=== PATIENT | female | born 2000 | race Caucasian/White ===

== ENCOUNTER 2024-01-23 13:32 | Inpatient (IN) ==
[2024-01-23] MEDS: LACTATED RINGER'S 1,000 ML IV ONE (14:15)
--- NOTE | 2024-01-23 14:44 | OB/GYN Consultation ---
Date of Consultation January 23, 2024 Assessment & Plan (1) 37 weeks gestation of : (2) Vaginal bleeding: (3) No care in current : Plan 23 yo G1 at approximately 37 weeks gestation presents w/ vag bleeding and abd/back pain in in the setting of newly dx . US approx 37 wks and fundal height is consistent with this VSS Fetus cat 2, intermittent decels, ?variables noted Pain - ?early labor, neg for rom but is 2cm. Will plan to recheck in 2hrs. Discussed status has good variability but does have intermittent decels. If does persist, would need to talk about more urgent delivery for status GBS pending with all pnl, uds History of Present Illness Reason for Consultation: Requesting Physician: Dr. Cooper Attending Physician: Phylicia Houston MD History of Present Illness 23 yo G1 presented to ED due to +HPT and vaginal bleeding. Believed her period to be about 4 wks ago, notes she has been having her normal monthly period x 5-7 without any abnormal, skipped, or missed periods. Yesterday and today was having light bleeding but was different than her normal period so took a test and it was positive. She also noted back pain coming and going q15 min, minimal pain in abdomen. has not noted any abnormal abdominal pain over the last year, no b/b issues, n/v. 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 US in ED demonstrated SVIUP w/ FHR 141bpm, measuring 37 wks with TAVON 02/13/24, JOSE RAFAEL 7.5, DVP 2.3. 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 Is occasional/social alc drinker, 2x/mo. Denies marijuana use Allergies Allergy/AdvReac Type Severity Reaction Status Date / Time amoxicillin Allergy Unknown Hives Verified 01/23/24 14:05 Home Medications Medication Instructions Recorded Confirmed Type No Known Home Medications 01/23/24 01/23/24 History Patient History Medical History (Updated 01/23/24 @ 15:42 by Phylicia Houston MD) No known health problems Surgical History (Updated 01/23/24 @ 14:51 by Phylicia Houston MD) S/P tonsillectomy Family History (Updated 01/23/24 @ 15:29 by Roma Meneses RN) Father Myocardial infarction extensive paternal cardiac history Father age 40 grandmother 57 other family members with stents Grandmother (Paternal) Myocardial infarction Social History Smoking Status: Never smoker Hx Alcohol Use: Yes Hx Substance Use: No Preferred Language: Azeri Director Of Strategic Partnerships Required: No Beliefs That Will Affect Care: None marital status: Single Current Living Situation: Parent Current Living Situation Comment: lives with mom Feels Safe at Home: Yes Assistive Devices: Glasses Physical Exam Genitourinary: OB Exam Monitor Tracing: + external FHT monitor used, + external uterine monitor used (irreg) and + category II (140/mod/+accel/intermit decels) Fundal height 37cm SSE cervix visually dilated approx 2cm, no pooling. Nitrazine equiv as small brown/red blood. Ferning negative SVE 2/80/-2 Results & Data Vital Signs (Past 12 Hours) Vital Signs Temp Pulse Resp BP Pulse Ox 01/23/24 14:30 99 01/23/24 14:30 76 01/23/24 14:25 99 01/23/24 14:25 90 01/23/24 14:21 84 01/23/24 14:21 138/83 01/23/24 14:20 99 01/23/24 14:20 85 01/23/24 14:15 98 01/23/24 14:15 80 01/23/24 14:13 99.3 F 18 01/23/24 14:12 91 01/23/24 14:12 94 H 01/23/24 14:10 99 01/23/24 14:10 82 01/23/24 14:05 99 01/23/24 14:05 82 01/23/24 14:00 77 98 01/23/24 13:49 73 125/68 01/23/24 13:25 18 01/23/24 13:25 99.3 F 18 PG Care Time/CCT Total # of Minutes Spent Total Time Spent with Patient: Total time spent is greater than 50% in coordination of care (as documented) at patient's floor/unit and/or counseling patient: Coding Level of Care Code None Diagnoses 37 weeks gestation of Z3A.37 Vaginal bleeding N93.9 No care in current O09.30
[2024-01-23] MEDS: ACETAMINOPHEN 500 MG TAB PO PRN (16:00)
[2024-01-23] MEDS: LACTATED RINGER'S 1,000 ML IV SCH (16:02)
[2024-01-23 16:03] LABS: Amphetamines+Metham, Urine Neg (Neg); Barbiturates, Urine Neg (Neg); Benzodiazepine, Urine Neg (Neg); Cocaine, Urine Neg (Neg); Fentanyl, Urine Neg (Neg); MDMA (Ecstacy), Urine Neg (Neg); Marijuana, Urine Neg (Neg); Methadone, Urine Neg (Neg); Opiate, Urine Neg (Neg); Phencyclidine, Urine Neg (Neg)
[2024-01-23 16:06] LABS: Rubella IgG Ab Equivocal (Immune); Rubella IgG Qnt 11.7 IU/mL
[2024-01-23 16:13] LABS: HIV 4th Gen(HIV 1,2 AB+p24 Ag Negative (Negative)
[2024-01-23 16:19] LABS: Hep B Surface Ag with confirm Negative (Negative); Treponema pallidum RflxConfirm Negative (Negative)
[2024-01-23 16:24] LABS: Hep C Ab Rflx HepCQuant RNA Negative (Negative)
[2024-01-23 16:28] LABS: Hepatitis B Surface Ab Quant > 500.00 mIU/mL (>or=10mIU/mL Immune); Hepatitis B Surface Antibody Immune
[2024-01-23] MEDS ORDERED: LACTATED RINGER'S 1,000 ML IV PRN (17:40)
[2024-01-23] MEDS ORDERED: LIDOCAINE 1% LOCAL 20 ML VIAL INFIL PRN (17:40)
[2024-01-23] MEDS ORDERED: OXYTOCIN 30 UNITS/NSS 30 UNITS/500 ML BAG IV PRN (17:40)
[2024-01-23] MEDS ORDERED: VANCOMYCIN HCL 2,000 MG in SODIUM CHLORIDE 0.9% 500 ML IV ONE (18:00)
--- NOTE | 2024-01-23 18:21 | Labor Progress Brief Note ---
Date of Service January 23, 2024 Subjective contractions worse Assessment & Plan (1) 37 weeks gestation of : (2) Vaginal bleeding: (3) No care in current : Plan 23 yo G1 at approximately 37 weeks gestation presents w/ vag bleeding and abd/back pain in in the setting of newly dx . US approx 37 wks and fundal height is consistent with this VSS Fetus cat 2, intermittent variables but remains mod variability Labor - appears to be early labor as now 3-4cm so will admit for lab. Labs wnl thus far other than rub equiv. Will start ancef for gbs unknown status GBS P, ancef ordered epidural prn Physical Exam Genitourinary: Manual OB Exam: + cervical dilation (3-4), + cervical ef facement 70% and + station -2 OB Exam Monitor Tracing: + external FHT monitor used, + external uterine monitor used (q3-4) and + category II (140/mod/+accel/intermit decels) Results & Data Vital Signs (Past 12 Hours) Vital Signs Temp Pulse Resp BP Pulse Ox 01/23/24 17:43 98 01/23/24 17:43 89 01/23/24 17:38 99 01/23/24 17:38 93 H 01/23/24 17:36 77 01/23/24 17:36 136/80 01/23/24 17:33 98 01/23/24 17:33 73 01/23/24 17:31 89 L 01/23/24 17:31 83 01/23/24 17:28 100 01/23/24 17:28 79 01/23/24 17:23 98 01/23/24 17:23 66 01/23/24 17:22 93 01/23/24 17:22 82 01/23/24 17:18 92 01/23/24 17:18 85 01/23/24 17:14 93 01/23/24 17:14 82 01/23/24 17:13 97 01/23/24 17:13 87 01/23/24 17:03 96 01/23/24 17:03 89 01/23/24 16:58 97 01/23/24 16:58 82 01/23/24 16:54 81 01/23/24 16:54 161/95 H 01/23/24 16:53 98 01/23/24 16:53 84 01/23/24 16:45 99 01/23/24 16:45 81 01/23/24 16:40 97 01/23/24 16:40 88 01/23/24 16:35 99 01/23/24 16:35 90 01/23/24 16:30 98 01/23/24 16:30 77 01/23/24 16:25 98 01/23/24 16:25 83 01/23/24 16:20 97 01/23/24 16:20 76 01/23/24 16:15 98 01/23/24 16:15 82 01/23/24 16:10 98 01/23/24 16:10 74 01/23/24 16:05 97 01/23/24 16:05 83 01/23/24 16:00 97 01/23/24 16:00 87 01/23/24 15:55 97 01/23/24 15:55 83 01/23/24 15:50 98 01/23/24 15:50 98 H 01/23/24 15:45 98 01/23/24 15:45 89 01/23/24 15:40 99 01/23/24 15:40 75 01/23/24 15:39 78 01/23/24 15:39 138/73 01/23/24 14:30 99 01/23/24 14:30 76 01/23/24 14:25 99 01/23/24 14:25 90 01/23/24 14:21 84 01/23/24 14:21 138/83 01/23/24 14:20 99 01/23/24 14:20 85 01/23/24 14:15 98 01/23/24 14:15 80 01/23/24 14:13 99.3 F 18 01/23/24 14:12 91 01/23/24 14:12 94 H 01/23/24 14:10 99 01/23/24 14:10 82 01/23/24 14:05 99 01/23/24 14:05 82 01/23/24 14:00 77 98 01/23/24 13:49 73 125/68 01/23/24 13:25 18 01/23/24 13:25 99.3 F 18 Coding Level of Care Code None Diagnoses 37 weeks gestation of Z3A.37 Vaginal bleeding N93.9 No care in current O09.30
[2024-01-23] MEDS ORDERED: NALOXONE HCL 0.4 MG/1 ML VIAL/CARP IV PRN ×2 (18:32→20:59)
[2024-01-23] MEDS ORDERED: NALBUPHINE HCL INJ 10 MG/ML AMP IV PRN ×2 (18:32→20:59)
[2024-01-23] MEDS ORDERED: LIDOCAINE 2% MPF LOCAL 5 ML VIAL EPI PRN (18:32)
[2024-01-23] MEDS ORDERED: diphenhydrAMINE 50 MG/ML VIAL IV PRN ×2 (18:32→20:59)
[2024-01-23] MEDS ORDERED: BUPIVACAINE 0.25% PF 30 ML VIAL EPI STA (18:32)
[2024-01-23] MEDS ORDERED: NALOXONE HCL 1 MG in SODIUM CHLORIDE 0.9% 1,000 ML IV PRN ×2 (18:32→20:59)
[2024-01-23] MEDS ORDERED: SODIUM CHLORIDE 0.9% PF INJ 10 ML VIAL EPI STA (18:32)
[2024-01-23] MEDS ORDERED: LIDOCAINE 2%/EPINEPHRINE 1:200,000 20 ML PF EPI STA (18:32)
[2024-01-23] MEDS ORDERED: ROPIVACAINE 0.5% PF 5 MG/ML 20 ML VIAL EPI PRN (18:32)
[2024-01-23] MEDS ORDERED: fentaNYL citrate PF 100 MCG/2 ML VIAL EPI PRN (18:32)
[2024-01-23] MEDS ORDERED: SODIUM CHLORIDE 0.9% PF INJ 10 ML VIAL EPI PRN (18:32)
[2024-01-23] MEDS ORDERED: ePHEDrine sulfate 50 MG/ML AMP IV PRN ×2 (18:32→20:59)
[2024-01-23] MEDS ORDERED: BUPIVACAINE 0.25% PF 30 ML VIAL EPI PRN (18:32)
[2024-01-23] MEDS ORDERED: fentaNYL citrate PF 100 MCG/2 ML VIAL EPI STA (18:32)
[2024-01-23] MEDS ORDERED: fentANYL 2 MCG/ML BUPIVacaine 0.125%-NSS 100ML BAG EPI PRN (18:32)
--- NOTE | 2024-01-23 18:32 | Anesthesiology Consultation ---
Date of Service January 23, 2024 Assessment & Plan Chart Review Chart Review: Acceptable Risk for Labor Epidural Consults Requested none History Height/Weight Height: 5 ft 5 in Weight: 108.862 kg Allergies Allergy/AdvReac Type Severity Reaction Status Date / Time amoxicillin Allergy Unknown Hives Verified 01/23/24 14:05 Medications Home Medications Medication Instructions Recorded Confirmed Last Taken No Known Home Medications 01/23/24 01/23/24 Unknown Active Medications Generic Name Dose Route Start Last Admin Trade Name Freq PRN Reason Stop Dose Admin Acetaminophen 1,000 mg 01/23/24 15:37 01/23/24 16:00 Acetaminophen 500 Mg Tab PO 02/22/24 15:36 1,000 mg Q8H PRN Administration Pain Lactated Ringer's 1,000 mls @ 125 mls/hr 01/23/24 15:45 01/23/24 18:30 Lr IV 02/22/24 15:44 999 mls/hr .Q8H ROMINA Infusion Past Medical History Medical History (Updated 01/23/24 @ 15:42 by Phylicia Houston MD) No known health problems Past Family History Family History (Updated 01/23/24 @ 15:29 by Roma Meneses RN) Father Myocardial infarction extensive paternal cardiac history Father age 40 grandmother 57 other family members with stents Grandmother (Paternal) Myocardial infarction Past Surgical History Surgical History (Updated 01/23/24 @ 14:51 by Phylicia Houston MD) S/P tonsillectomy Social History Smoking Status: Never smoker Hx Alcohol Use: Yes alcohol intake frequency: a few times a month Hx Substance Use: No Physical Exam Vital Signs Last Vital Signs Temp 37.4 C 01/23/24 14:13 Pulse 89 01/23/24 17:43 Resp 18 01/23/24 14:13 BP 136/80 01/23/24 17:36 Pulse Ox 98 01/23/24 17:43 Genitourinary Manual OB Exam: + cervical dilation (3-4), + cervical effacement + 70% and + station + -2 OB Exam Monitor Tracing: + external FHT monitor used, + external uterine monitor used (q3-4) and + category II (140/mod/+accel/intermit decels) Testing Laboratory Results Blood Type O Positive 01/23/24 11:32 Antibody Screen NEGATIVE 01/23/24 11:32
[2024-01-23] MEDS ORDERED: BUPIVACAINE 0.25% PF 30 ML VIAL ONE (18:33)
[2024-01-23] MEDS ORDERED: LIDOCAINE 2%/EPINEPHRINE 1:200,000 20 ML PF ONE ×2 (18:33→20:31)
[2024-01-23] MEDS ORDERED: fentaNYL citrate PF 100 MCG/2 ML VIAL ONE ×2 (18:33→20:31)
[2024-01-23] MEDS ORDERED: SODIUM CHLORIDE 0.9% PF INJ 10 ML VIAL ONE (18:33)
[2024-01-23] MEDS ORDERED: ePHEDrine sulfate 50 MG/ML AMP ONE (18:33)
[2024-01-23] MEDS: ceFAZolin 2000MG 2,000 MG/15 ML SYR IV ONE (18:37)
[2024-01-23] MEDS: fentANYL 2 MCG/ML BUPIVacaine 0.125%-NSS 100ML BAG ONE (18:53)
[2024-01-23] MEDS: TERBUTALINE SULFATE 1 MG/ML VIAL ONE (20:28)
[2024-01-23] MEDS ORDERED: AZITHROMYCIN 500 MG in DEXTROSE 5% 250 ML IV STA (20:36)
[2024-01-23] MEDS ORDERED: ceFAZolin 3000MG 3,000 MG/72.5 ML BAG IV SCH (20:45)
[2024-01-23] MEDS ORDERED: ceFAZolin 330 MG/ML 1 GM VIAL ONE ×3 (20:46→20:47)
[2024-01-23] MEDS ORDERED: OXYTOCIN 10 UNITS/ML VIAL ONE ×3 (20:50→20:51)
[2024-01-23] MEDS ORDERED: MoRPHine SULFATE PF 1 MG/ML 10 ML AMP/VIAL ONE (20:57)
[2024-01-23] MEDS ORDERED: LACTATED RINGER'S 500 ML IV PRN (20:59)
[2024-01-23] MEDS ORDERED: KETOROLAC 30 MG/ML VIAL IV PRN (20:59)
[2024-01-23] MEDS ORDERED: MoRPHine SULFATE PF 1 MG/ML 10 ML AMP/VIAL EPI ONE (20:59)
[2024-01-23] MEDS ORDERED: DC INTRASPINAL MORPHINE SCH (21:00)
[2024-01-23] MEDS ORDERED: SODIUM CHLORIDE 0.9% 1,000 ML IV SCH (21:00)
[2024-01-23] MEDS ORDERED: NO NARCOTICS OR SEDATIVES SCH (21:00)
[2024-01-23] MEDS ORDERED: KETOROLAC 30 MG/ML VIAL ONE (21:28)
[2024-01-23 21:55] LABS: Cord Venous Blood PO2 21 mmHg (14.1-43.3); O2 Saturation Cord Venous Bld < 60.0 % (<68)
[2024-01-23] MEDS ORDERED: VANCOMYCIN HCL 2,000 MG in SODIUM CHLORIDE 0.9% 250 ML IV SCH (22:00)
--- NOTE | 2024-01-23 22:04 | Anesthesiology Progress Note ---
Date of Service January 23, 2024 Anesthesia Post Procedure Vital Signs Vital Signs: Temp Pulse Resp BP Pulse Ox 01/23/24 22:00 97 01/23/24 22:00 129 H 01/23/24 21:55 84 L 01/23/24 21:55 128 H 01/23/24 21:55 90/50 L 01/23/24 21:54 117 H 01/23/24 21:54 82/40 L 01/23/24 21:50 100 01/23/24 21:50 122 H 01/23/24 21:49 91 01/23/24 21:49 126 H 01/23/24 20:35 94 01/23/24 20:35 112 H 01/23/24 20:34 90 01/23/24 20:34 93 H 01/23/24 20:31 82 01/23/24 20:31 145/77 H 01/23/24 20:30 97 01/23/24 20:30 102 H 01/23/24 20:29 91 01/23/24 20:29 77 01/23/24 20:25 100 01/23/24 20:25 97 H 01/23/24 20:23 89 L 01/23/24 20:23 94 H 01/23/24 20:19 98 01/23/24 20:19 63 01/23/24 20:17 89 L 01/23/24 20:17 72 01/23/24 20:14 100 01/23/24 20:14 62 01/23/24 20:09 100 01/23/24 20:09 63 01/23/24 20:04 100 01/23/24 20:04 69 01/23/24 20:01 62 01/23/24 20:01 146/81 H 01/23/24 19:59 87 L 01/23/24 19:59 71 01/23/24 19:53 100 01/23/24 19:53 78 01/23/24 19:53 93 01/23/24 19:53 67 01/23/24 19:48 100 01/23/24 19:48 62 01/23/24 19:43 100 01/23/24 19:43 64 01/23/24 19:41 66 01/23/24 19:41 131/77 01/23/24 19:38 100 01/23/24 19:38 65 01/23/24 19:36 71 01/23/24 19:36 134/83 01/23/24 19:33 98 01/23/24 19:33 70 01/23/24 19:31 62 01/23/24 19:31 108/58 L 01/23/24 19:28 99 01/23/24 19:28 76 01/23/24 19:27 67 01/23/24 19:27 118/58 L 01/23/24 19:23 99 01/23/24 19:23 83 01/23/24 19:22 74 01/23/24 19:22 136/72 01/23/24 19:18 99 01/23/24 19:18 68 01/23/24 19:13 97 01/23/24 19:13 66 01/23/24 19:13 132/77 01/23/24 19:10 71 01/23/24 19:10 123/76 01/23/24 19:08 98 01/23/24 19:08 80 01/23/24 19:08 85 01/23/24 19:08 116/73 01/23/24 19:04 71 01/23/24 19:04 131/82 01/23/24 19:03 97 01/23/24 19:03 71 01/23/24 19:01 71 01/23/24 19:01 132/81 01/23/24 18:59 74 01/23/24 18:59 140/84 01/23/24 18:58 97 01/23/24 18:58 75 01/23/24 18:55 79 01/23/24 18:55 157/96 H 01/23/24 18:53 97 01/23/24 18:53 93 H 01/23/24 18:52 87 01/23/24 18:52 146/92 H 01/23/24 18:50 75 01/23/24 18:50 147/90 H 01/23/24 18:49 94 01/23/24 18:49 76 01/23/24 18:48 92 01/23/24 18:48 77 01/23/24 18:44 93 01/23/24 18:44 78 01/23/24 18:43 95 01/23/24 18:43 75 01/23/24 17:43 98 01/23/24 17:43 89 01/23/24 17:38 99 01/23/24 17:38 93 H 01/23/24 17:36 77 01/23/24 17:36 136/80 01/23/24 17:33 98 01/23/24 17:33 73 01/23/24 17:31 89 L 01/23/24 17:31 83 01/23/24 17:28 100 01/23/24 17:28 79 01/23/24 17:23 98 01/23/24 17:23 66 01/23/24 17:22 93 01/23/24 17:22 82 01/23/24 17:18 92 01/23/24 17:18 85 01/23/24 17:14 93 01/23/24 17:14 82 01/23/24 17:13 97 01/23/24 17:13 87 01/23/24 17:03 96 01/23/24 17:03 89 01/23/24 16:58 97 01/23/24 16:58 82 01/23/24 16:54 81 01/23/24 16:54 161/95 H 01/23/24 16:53 98 01/23/24 16:53 84 01/23/24 16:45 99 01/23/24 16:45 81 01/23/24 16:40 97 01/23/24 16:40 88 01/23/24 16:35 99 01/23/24 16:35 90 01/23/24 16:30 98 01/23/24 16:30 77 01/23/24 16:25 98 01/23/24 16:25 83 01/23/24 16:20 97 01/23/24 16:20 76 01/23/24 16:15 98 01/23/24 16:15 82 01/23/24 16:10 98 01/23/24 16:10 74 01/23/24 16:05 97 01/23/24 16:05 83 01/23/24 16:00 97 01/23/24 16:00 87 01/23/24 15:55 97 01/23/24 15:55 83 01/23/24 15:50 98 01/23/24 15:50 98 H 01/23/24 15:45 98 01/23/24 15:45 89 01/23/24 15:40 99 01/23/24 15:40 75 01/23/24 15:39 78 01/23/24 15:39 138/73 01/23/24 14:30 99 01/23/24 14:30 76 01/23/24 14:25 99 01/23/24 14:25 90 01/23/24 14:21 84 01/23/24 14:21 138/83 01/23/24 14:20 99 01/23/24 14:20 85 01/23/24 14:15 98 01/23/24 14:15 80 01/23/24 14:13 37.4 C 18 01/23/24 14:12 91 01/23/24 14:12 94 H 01/23/24 14:10 99 01/23/24 14:10 82 01/23/24 14:05 99 01/23/24 14:05 82 01/23/24 14:00 77 98 01/23/24 13:49 73 125/68 01/23/24 13:25 18 01/23/24 13:25 37.4 C 18 Pain Intensity Back: Pain Intensity: 10 Notes Mental Status: alert / awake / arousable Patient Amnestic to Procedure: Yes Nausea / Vomiting: adequately controlled Pain: adequately controlled Airway Patency, RR, SpO2: stable & adequate BP & HR: stable & adequate Hydration State: stable & adequate Neuraxial Anesthesia: was administered Anesthetic Complications: no major complications apparent
--- NOTE | 2024-01-23 22:12 | Operative Report ---
Post Operative Report Pre & Post Diagnosis Operation Date: 01/23/24 20:35 Pre-Op Diagnosis: 1.Intrauterine at 37 weeks 2. intolerance to labor 3.No care Post-Op Diagnosis: 1.Intrauterine at 37 weeks 2. intolerance to labor 3.No care I identified the patient and participated in the time-out.: Yes Procedure Operation Date: 01/23/24 20:35 Actual Procedures p Primary Low Transverse Section in - Phylicia Houston MD Surgeon Phylicia Houston MD Clinical Data Management Manager Julita RN Quantitative Blood Loss (QBL) 591 Findings Consistent with Post-Op Diagnosis Normal external appearance of uterus, bilateral fallopian tubes and ovaries. Endometrium was noted to be meconium stained upon entry into cavity with thick p articulate meconium in the cavity. Viable male with APGARs of 1, 4, and 4 were noted. Skin of infant and umbilical cord appeared to be significantly meconium stained as well. Of note, no meconium or clear evidence of rupture of membranes was ever seen on pad while in labor room. 2 vessel cord was seen. Fluids UOP 600cc by urbano catheter Specimens Cord blood, cord gases, placenta Drains Urbano draining clear urine Anesthesia Type Spinal Complications none Disposition Accompanied Patient To Recovery: Yes Disposition: L&D Indications 23 yo G1 at 37 wks presented for evaluation and was found to be and 37 wks today. She was found to be in labor and admitted. During this time, category 2 tracing was noted due to intermittent variable decels however moderate variability was noted throughout. She received an epidural for pain control. Shortly after epidural, variable decels slowly became more frequent and so resuscitation was performed with appropriate response. See notes for details. Another decel was noted so terbutaline was administered and FSE applied however intrauterine resuscitation efforts did not improve tracing so stat section was called. Description of Procedure The patient was taken to the operating room after consents were ensured. The patient was properly identified. Epidural anesthesia had been bolused without difficulty. The patient was placed in a dorsal supine position with left lateral tilt, then prepped and draped in normal sterile fashion. Surgical time out was performed. Antibiotics were given for prophylaxis. Anesthesia was tested to ensure adequate surgical levels. Pfannenstiel skin incision was performed and carried down to the underlying fascia with a knife. The fascia was then nicked in the midline and extended laterally bluntly. Superior portion of the fascia was grasped with Kochers x2 and elevated off the underlying rectus muscles using blunt dissection. Inferior portion of the fascia was then grasped with Santi clamps x2 and also elevated off the underlying muscles with blunt dissection. Midline was identified. The peritoneum was then entered and extended to provide adequate room for delivery of baby. A hand was inserted into the abdomen, uterus was noted to be clear of adhesions. Bladder blade was inserted, bladder flap was created in the usual fashion. A low transverse uterine incision was made in the uterus and extended bluntly in a superior to inferior fashion. Thick meconium was noted at time of entry into cavity. head was grasped and elevated through the hysterotomy in an atraumatic fashion. The baby delivered in CHAKA position, no nuchal cord. Remainder of the body delivered without incident. Nose and mouth were bulb suctioned on the surgical field. The cord was double clamped and cut, baby was immediately handed off to awaiting pediatrics staff. Cord segment and blood were obtained. Placenta was then expressed from the uterus. The uterus was exteriorized. Several passes were made inside the uterus to remove the remaining membranes. Attention was then turned to the hysterotomy, which was then closed with a running locked suture of 0 Vicryl on a CTX needle. There was a slight inferior extension in the middle of the hysterotomy that was repaired using 0 vicryl. An imbricating layer was then performed using 0-Monocryl. There was noted to be good hemostasis. The posterior cul-de-sac was then inspected and cleaned of clot and debris. The hysterotomy was again inspected and noted to be hemostatic. The uterus was returned to the abdomen. The right and left pericolic gutters were cleaned of all clot and debris. The hysterotomy was again noted to be hemostatic. Space of Retzius was noted to be hemostatic. The fascia was then closed with a running suture of 0 Vicryl on a CT1 needle. Subcutaneous tissue was copiously irrigated and noted to be hemostatic. Subcutaneous tissue was re- approximated using 2-0 plain gut. The skin was then closed with a running suture of 3-0 Monocryl in a subcuticular fashion. At termination of the procedure, fundal pressure was applied and a moderate amount of lochia was expressed. Pressure dressing was applied to the patient. She tolerated the procedure well. All sponge, needle, instrument counts were correct x 2. I attest to the content of the Intraoperative Record and any orders documented therein. Any exceptions are noted below. OB Procedure Charges 98333
[2024-01-23 22:26] LABS: Cord Venous Blood pH < 7.00 (7.20-7.44)
[2024-01-23 22:27] LABS: Cord Venous Blood PCO2 > 125 mmHg (30.4-57.2)
--- NOTE | 2024-01-23 22:35 | Labor Progress Brief Note ---
Date of Service January 23, 2024 Subjective Delayed entry due to pt care. Called to bedside due to deceleration Assessment & Plan (1) 37 weeks gestation of : (2) Vaginal bleeding: (3) No care in current : Plan 23 yo G1 at approximately 37 weeks gestation presents w/ vag bleeding and abd/back pain in in the setting of newly dx . US approx 37 wks and fundal height is consistent with this Was informed by nursing that after receiving epidural, had some deeper variables that resolved with repositioning oxygen into the 130s with moderate variability. I was informed of this afterward and so planned to allow fetus to recover further and then reassess progress. SVE was then performed by nursing due to another decel and found to have progressed to 5/75/-1 by nursing with recovery noted and then I was requested to present at bedside. I immediately presented and remained at beside for a period of time during which normal baseline and mod variability continued. I discussed that with decel shortly after epidural, would try to let fetus recover but if did not remain stable would recommend CS and pt verbalized understanding. At that time, I was called for delivery of another patient and given that fetus appeared stable and recovered at that point, I stepped away for delivery and returned immediately after. Shortly before I returned back from delivery, another decel had begun and nursing had initiated repositioning. I requested terbutaline to be administered and applied FSE for better monitoring of fetus at which point it had appeared that she had already spontaneously ruptured at some point by exam. At this point I discussed w/ pt that if fht did not improve with terb and fse, would recommend stat section due to acute change in tracing. With scalp placement and continued repositioning, heart rate returned into the 90s-low 100s but then began having decels into the 80s again so stat section was called. Verbal informed consent was obtained due to emergent nature of procedure. Peds and anesthesia were made aware Admission and Anticipated Discharge Date Admission Date: January 23, 2024 Physical Exam Genitourinary: Manual OB Exam: + cervical dilation (3-4), + cervical eff acement 70% and + station -2 OB Exam Monitor Tracing: + external FHT monitor used, + external uterine monitor used (q3-4) and + category II (140/mod/+accel/intermit decels) Results & Data Vital Signs (Past 12 Hours) Vital Signs Temp Pulse Resp BP Pulse Ox 01/23/24 22:17 94 01/23/24 22:17 125 H 01/23/24 22:15 96 01/23/24 22:15 120 H 01/23/24 22:10 96 01/23/24 22:10 149 H 01/23/24 22:09 90 01/23/24 22:09 137 H 01/23/24 22:05 97 01/23/24 22:05 130 H 01/23/24 22:00 97 01/23/24 22:00 129 H 01/23/24 21:55 84 L 01/23/24 21:55 128 H 01/23/24 21:55 90/50 L 01/23/24 21:54 117 H 01/23/24 21:54 82/40 L 01/23/24 21:50 100 01/23/24 21:50 122 H 01/23/24 21:49 91 01/23/24 21:49 126 H 01/23/24 20:35 94 01/23/24 20:35 112 H 01/23/24 20:34 90 01/23/24 20:34 93 H 01/23/24 20:31 82 01/23/24 20:31 145/77 H 01/23/24 20:30 97 01/23/24 20:30 102 H 01/23/24 20:29 91 01/23/24 20:29 77 01/23/24 20:25 100 01/23/24 20:25 97 H 01/23/24 20:23 89 L 01/23/24 20:23 94 H 01/23/24 20:19 98 01/23/24 20:19 63 01/23/24 20:17 89 L 01/23/24 20:17 72 01/23/24 20:14 100 01/23/24 20:14 62 01/23/24 20:09 100 01/23/24 20:09 63 01/23/24 20:04 100 01/23/24 20:04 69 01/23/24 20:01 62 01/23/24 20:01 146/81 H 01/23/24 19:59 87 L 01/23/24 19:59 71 01/23/24 19:53 100 01/23/24 19:53 78 01/23/24 19:53 93 01/23/24 19:53 67 01/23/24 19:48 100 01/23/24 19:48 62 01/23/24 19:43 100 01/23/24 19:43 64 01/23/24 19:41 66 01/23/24 19:41 131/77 01/23/24 19:38 100 01/23/24 19:38 65 01/23/24 19:36 71 01/23/24 19:36 134/83 01/23/24 19:33 98 01/23/24 19:33 70 01/23/24 19:31 62 01/23/24 19:31 108/58 L 01/23/24 19:28 99 01/23/24 19:28 76 01/23/24 19:27 67 01/23/24 19:27 118/58 L 01/23/24 19:23 99 01/23/24 19:23 83 01/23/24 19:22 74 01/23/24 19:22 136/72 01/23/24 19:18 99 01/23/24 19:18 68 01/23/24 19:13 97 01/23/24 19:13 66 01/23/24 19:13 132/77 01/23/24 19:10 71 01/23/24 19:10 123/76 01/23/24 19:08 98 01/23/24 19:08 80 01/23/24 19:08 85 01/23/24 19:08 116/73 01/23/24 19:04 71 01/23/24 19:04 131/82 01/23/24 19:03 97 01/23/24 19:03 71 01/23/24 19:01 71 01/23/24 19:01 132/81 01/23/24 18:59 74 01/23/24 18:59 140/84 01/23/24 18:58 97 01/23/24 18:58 75 01/23/24 18:55 79 01/23/24 18:55 157/96 H 01/23/24 18:53 97 01/23/24 18:53 93 H 01/23/24 18:52 87 01/23/24 18:52 146/92 H 01/23/24 18:50 75 01/23/24 18:50 147/90 H 01/23/24 18:49 94 01/23/24 18:49 76 01/23/24 18:48 92 01/23/24 18:48 77 01/23/24 18:44 93 01/23/24 18:44 78 01/23/24 18:43 95 01/23/24 18:43 75 01/23/24 17:43 98 01/23/24 17:43 89 01/23/24 17:38 99 01/23/24 17:38 93 H 01/23/24 17:36 77 01/23/24 17:36 136/80 01/23/24 17:33 98 01/23/24 17:33 73 01/23/24 17:31 89 L 01/23/24 17:31 83 01/23/24 17:28 100 01/23/24 17:28 79 01/23/24 17:23 98 01/23/24 17:23 66 01/23/24 17:22 93 01/23/24 17:22 82 01/23/24 17:18 92 01/23/24 17:18 85 01/23/24 17:14 93 01/23/24 17:14 82 01/23/24 17:13 97 01/23/24 17:13 87 01/23/24 17:03 96 01/23/24 17:03 89 01/23/24 16:58 97 01/23/24 16:58 82 01/23/24 16:54 81 01/23/24 16:54 161/95 H 01/23/24 16:53 98 01/23/24 16:53 84 01/23/24 16:45 99 01/23/24 16:45 81 01/23/24 16:40 97 01/23/24 16:40 88 01/23/24 16:35 99 01/23/24 16:35 90 01/23/24 16:30 98 01/23/24 16:30 77 01/23/24 16:25 98 01/23/24 16:25 83 01/23/24 16:20 97 01/23/24 16:20 76 01/23/24 16:15 98 01/23/24 16:15 82 01/23/24 16:10 98 01/23/24 16:10 74 01/23/24 16:05 97 01/23/24 16:05 83 01/23/24 16:00 97 01/23/24 16:00 87 01/23/24 15:55 97 01/23/24 15:55 83 01/23/24 15:50 98 01/23/24 15:50 98 H 01/23/24 15:45 98 01/23/24 15:45 89 01/23/24 15:40 99 01/23/24 15:40 75 01/23/24 15:39 78 01/23/24 15:39 138/73 01/23/24 14:30 99 01/23/24 14:30 76 01/23/24 14:25 99 01/23/24 14:25 90 01/23/24 14:21 84 01/23/24 14:21 138/83 01/23/24 14:20 99 01/23/24 14:20 85 01/23/24 14:15 98 01/23/24 14:15 80 01/23/24 14:13 99.3 F 18 01/23/24 14:12 91 01/23/24 14:12 94 H 01/23/24 14:10 99 01/23/24 14:10 82 01/23/24 14:05 99 01/23/24 14:05 82 01/23/24 14:00 77 98 01/23/24 13:49 73 125/68 01/23/24 13:25 18 01/23/24 13:25 99.3 F 18 Coding Level of Care Code None Diagnoses 37 weeks gestation of Z3A.37 Vaginal bleeding N93.9 No care in current O09.30
[2024-01-23] MEDS ORDERED: CALCIUM CARBONATE 500 MG CHEWABLE TAB PO PRN (22:59)
[2024-01-23] MEDS ORDERED: BENZOCAINE 20% SPRY 85 APPLN/85 GM CAN EXT PRN (22:59)
[2024-01-23] MEDS ORDERED: HYDROCORTISONE ACETATE 25 MG SUPP PR PRN (22:59)
[2024-01-23] MEDS ORDERED: DIPHTHER/TETAN/PERTUS Vaccine (Tdap, Adol/Adult) 0.5mL IM ONE (22:59)
[2024-01-23] MEDS ORDERED: SENNA 8.6 MG TAB PO PRN (22:59)
[2024-01-23] MEDS ORDERED: MAGNESIUM HYDROXIDE SUSP 30 ML UDC PO PRN (22:59)
[2024-01-23] MEDS: OXYTOCIN 20 UNITS/LR 1,002 ML IV SCH (23:15)
[2024-01-24] MEDS: ONDANSETRON INJ 2 MG/ML 2 ML VIAL IV PRN (00:35)
[2024-01-24] MEDS ORDERED: ceFAZolin 1000MG 1,000 MG/7.5 ML SYR IV SCH (02:00)
[2024-01-24] MEDS: IBUPROFEN 600 MG TAB PO SCH (03:53)
[2024-01-24] MEDS: ACETAMINOPHEN 325 MG TAB PO SCH (03:54)
[2024-01-24] MEDS ORDERED: KETOROLAC 30 MG/ML VIAL IV SCH (04:00)
[2024-01-24 06:23] LABS: Basophils # (auto) 0.02 K/uL (0.00-0.20); Basophils % (auto) 0.2 %; Eosinophils # (auto) 0.01 K/uL (0.00-0.50); Eosinophils % (auto) 0.1 %; Hematocrit (blood only) 30.6 % (37.0-47.0); Hemoglobin 10.1 g/dl (12.0-16.0); Immature Granulocytes # (auto) 0.04 K/uL (0.01-0.20); Immature Granulocytes % (auto) 0.4 %; Lymphocytes # (auto) 1.47 K/uL (1.20-3.40); Lymphocytes % (auto) 16.4 %; Mean Corpuscular Hemoglobin 28.7 pg (25.0-34.0); Mean Corpuscular Volume 86.9 fL (80.0-100.0); Mean Platelet Volume 9.6 fL (9.4-12.4); Monocytes % (auto) 4.5 %; Neutrophils # (auto) 7.04 K/uL (1.40-6.50); Neutrophils % (auto) 78.4 %; Platelet Count 175 K/uL (130-400); RDW Coefficient of Variation 13.2 % (11.5-14.5); RDW Standard Deviation 41.2 fL (36.4-46.3); Red Blood Count 3.52 M/uL (4.20-5.40); White Blood Count 8.98 K/ul (4.8-10.8)
--- NOTE | 2024-01-24 07:08 | Obstetrical Progress Note ---
Date of Service January 24, 2024 Assessment & Plan (1) delivery delivered: Plan 1st POD; EmLTCS for Meconium with Cat 2 CTG Doing well overall Diet: regular Encourage ambulation Bandage removal as per protocol. Oral meds continue Admission and Anticipated Discharge Date Admission Date: January 23, 2024 Supervising Physician Co-Signing Physician Notes Resident Physician Supervision Note: I interviewed and examined the patient. Discussed with Dr. Franco and agree with findings and plan as documented in the note. Any exceptions or clarifications are listed here: POD1 s/p pLTCS, doing well. Not yet voided as catheter just removed, due to pass gas. Baby transferred to [facility] [place], she is not sure about adoption route or not yet. Continue routine care Documented By: Phylicia Houston MD Subjective 1st PODfoll Em LTCS for Meconium stained and Cat 2 CTG at term No ANC visit before Mom Doing well; baby transferred to [facility] No active complains Lochia: Moderate Not aware of passeing gas Mcqueen's removed; has not peed after that; encouraged oral intake Normal diet Review of Systems Review of Systems: As per HPI Physical Exam Physical Exam: General: Alert and oriented. No acute distress. CV: Regular rate and rhythm. No murmurs. Respiratory: CTA bilaterally. No rhonchi, wheezes, or crackles. No increased work of breathing. Abdomen: Positive bowel sounds. Soft, nontender, and nondistended. Uterus: Fundus firm and palpable just below umbilicus. Surgical scar clean and healing well. Lower extremities: No LE edema. No deep calf pain. Alcira's negative bilaterally. Results & Data Vital Signs (Past 12 Hours) Vital Signs Temp Pulse Pulse Resp BP BP Pulse Ox 01/24/24 06:10 18 99 01/24/24 05:11 16 94 01/24/24 04:26 17 96 01/24/24 04:00 37.1 C 88 16 119/75 97 01/24/24 03:15 16 97 01/24/24 02:09 18 96 01/24/24 01:15 18 98 01/24/24 01:15 01/24/24 01:15 37 C 98 H 18 133/87 98 01/24/24 00:30 133 H 99 01/24/24 00:25 111 H 98 01/24/24 00:23 104 H 129/62 01/24/24 00:20 107 H 98 01/24/24 00:15 107 H 99 01/24/24 00:14 108 H 128/66 01/24/24 00:10 108 H 97 01/24/24 00:05 107 H 99 01/24/24 00:03 111 H 122/69 01/24/24 00:00 107 H 100 01/23/24 23:55 100 01/23/24 23:55 114 H 01/23/24 23:54 115 H 01/23/24 23:54 129/78 01/23/24 23:50 36.7 C 16 01/23/24 23:50 99 01/23/24 23:50 122 H 01/23/24 23:45 99 01/23/24 23:45 120 H 01/23/24 23:40 100 01/23/24 23:40 114 H 01/23/24 23:35 100 01/23/24 23:35 118 H 01/23/24 23:34 126 H 01/23/24 23:34 122/75 01/23/24 23:30 100 01/23/24 23:30 126 H 01/23/24 23:25 100 01/23/24 23:25 113 H 01/23/24 23:23 111 H 01/23/24 23:23 115/59 L 01/23/24 23:20 16 01/23/24 23:20 99 01/23/24 23:20 109 H 01/23/24 23:15 98 01/23/24 23:15 107 H 01/23/24 23:13 108 H 01/23/24 23:13 105/63 01/23/24 23:10 98 01/23/24 23:10 127 H 01/23/24 23:05 99 01/23/24 23:05 121 H 01/23/24 23:04 122 H 01/23/24 23:04 102/55 L 01/23/24 23:00 98 01/23/24 23:00 121 H 01/23/24 22:55 98 01/23/24 22:55 129 H 01/23/24 22:53 127 H 01/23/24 22:53 90/50 L 01/23/24 22:50 16 01/23/24 22:50 16 01/23/24 22:50 97 01/23/24 22:50 125 H 01/23/24 22:45 97 01/23/24 22:45 112 H 01/23/24 22:43 120 H 01/23/24 22:43 87/50 L 01/23/24 22:40 16 01/23/24 22:40 97 01/23/24 22:40 125 H 01/23/24 22:35 97 01/23/24 22:35 114 H 01/23/24 22:33 126 H 01/23/24 22:33 90/54 L 01/23/24 22:30 16 01/23/24 22:30 98 01/23/24 22:30 120 H 01/23/24 22:25 97 01/23/24 22:25 122 H 01/23/24 22:24 125 H 01/23/24 22:24 82/47 L 01/23/24 22:20 16 01/23/24 22:20 98 01/23/24 22:20 125 H 01/23/24 22:17 94 01/23/24 22:17 125 H 01/23/24 22:15 96 01/23/24 22:15 120 H 01/23/24 22:10 16 01/23/24 22:10 96 01/23/24 22:10 149 H 01/23/24 22:09 90 01/23/24 22:09 137 H 01/23/24 22:05 97 01/23/24 22:05 130 H 01/23/24 22:00 16 01/23/24 22:00 97 01/23/24 22:00 129 H 01/23/24 21:55 84 L 01/23/24 21:55 128 H 01/23/24 21:55 90/50 L 01/23/24 21:54 117 H 01/23/24 21:54 82/40 L 01/23/24 21:50 36.9 C 16 01/23/24 21:50 100 01/23/24 21:50 122 H 01/23/24 21:49 91 01/23/24 21:49 126 H 01/23/24 20:35 94 01/23/24 20:35 112 H 01/23/24 20:34 90 01/23/24 20:34 93 H 01/23/24 20:31 82 01/23/24 20:31 145/77 H 01/23/24 20:30 97 01/23/24 20:30 102 H 01/23/24 20:29 91 01/23/24 20:29 77 01/23/24 20:25 100 01/23/24 20:25 97 H 01/23/24 20:23 89 L 01/23/24 20:23 94 H 01/23/24 20:19 98 01/23/24 20:19 63 01/23/24 20:17 89 L 01/23/24 20:17 72 01/23/24 20:14 100 01/23/24 20:14 62 01/23/24 20:09 100 01/23/24 20:09 63 01/23/24 20:04 100 01/23/24 20:04 69 01/23/24 20:01 62 01/23/24 20:01 146/81 H 01/23/24 19:59 87 L 01/23/24 19:59 71 01/23/24 19:53 100 01/23/24 19:53 78 01/23/24 19:53 93 01/23/24 19:53 67 01/23/24 19:48 100 01/23/24 19:48 62 01/23/24 19:43 100 01/23/24 19:43 64 01/23/24 19:41 66 01/23/24 19:41 131/77 01/23/24 19:38 100 01/23/24 19:38 65 01/23/24 19:36 71 01/23/24 19:36 134/83 01/23/24 19:33 98 01/23/24 19:33 70 01/23/24 19:31 62 01/23/24 19:31 108/58 L 01/23/24 19:28 99 01/23/24 19:28 76 01/23/24 19:27 67 01/23/24 19:27 118/58 L 01/23/24 19:23 99 01/23/24 19:23 83 01/23/24 19:22 74 01/23/24 19:22 136/72 01/23/24 19:18 99 01/23/24 19:18 68 01/23/24 19:13 97 09/18/24 19:13 66 01/23/24 19:13 132/77 01/23/24 19:10 71 01/23/24 19:10 123/76 01/23/24 19:08 98 01/23/24 19:08 80 01/23/24 19:08 85 01/23/24 19:08 116/73 01/23/24 19:04 71 01/23/24 19:04 131/82 O2 Del Method 01/24/24 06:10 01/24/24 05:11 01/24/24 04:26 01/24/24 04:00 Room Air 01/24/24 03:15 01/24/24 02:09 01/24/24 01:15 01/24/24 01:15 Room Air 01/24/24 01:15 Room Air 01/24/24 00:30 01/24/24 00:25 01/24/24 00:23 01/24/24 00:20 01/24/24 00:15 01/24/24 00:14 01/24/24 00:10 01/24/24 00:05 01/24/24 00:03 01/24/24 00:00 01/23/24 23:55 01/23/24 23:55 01/23/24 23:54 01/23/24 23:54 01/23/24 23:50 01/23/24 23:50 01/23/24 23:50 01/23/24 23:45 01/23/24 23:45 01/23/24 23:40 01/23/24 23:40 01/23/24 23:35 01/23/24 23:35 01/23/24 23:34 01/23/24 23:34 01/23/24 23:30 01/23/24 23:30 01/23/24 23:25 01/23/24 23:25 01/23/24 23:23 01/23/24 23:23 01/23/24 23:20 01/23/24 23:20 01/23/24 23:20 01/23/24 23:15 01/23/24 23:15 01/23/24 23:13 01/23/24 23:13 01/23/24 23:10 01/23/24 23:10 01/23/24 23:05 01/23/24 23:05 01/23/24 23:04 01/23/24 23:04 01/23/24 23:00 01/23/24 23:00 01/23/24 22:55 01/23/24 22:55 01/23/24 22:53 01/23/24 22:53 01/23/24 22:50 01/23/24 22:50 01/23/24 22:50 01/23/24 22:50 01/23/24 22:45 01/23/24 22:45 01/23/24 22:43 01/23/24 22:43 01/23/24 22:40 01/23/24 22:40 01/23/24 22:40 01/23/24 22:35 01/23/24 22:35 01/23/24 22:33 01/23/24 22:33 01/23/24 22:30 01/23/24 22:30 01/23/24 22:30 01/23/24 22:25 01/23/24 22:25 01/23/24 22:24 01/23/24 22:24 01/23/24 22:20 01/23/24 22:20 01/23/24 22:20 01/23/24 22:17 01/23/24 22:17 01/23/24 22:15 01/23/24 22:15 01/23/24 22:10 01/23/24 22:10 01/23/24 22:10 01/23/24 22:09 01/23/24 22:09 01/23/24 22:05 01/23/24 22:05 01/23/24 22:00 01/23/24 22:00 01/23/24 22:00 01/23/24 21:55 01/23/24 21:55 01/23/24 21:55 01/23/24 21:54 01/23/24 21:54 01/23/24 21:50 01/23/24 21:50 01/23/24 21:50 01/23/24 21:49 01/23/24 21:49 01/23/24 20:35 01/23/24 20:35 01/23/24 20:34 01/23/24 20:34 01/23/24 20:31 01/23/24 20:31 01/23/24 20:30 01/23/24 20:30 01/23/24 20:29 01/23/24 20:29 01/23/24 20:25 01/23/24 20:25 01/23/24 20:23 01/23/24 20:23 01/23/24 20:19 01/23/24 20:19 01/23/24 20:17 01/23/24 20:17 01/23/24 20:14 01/23/24 20:14 01/23/24 20:09 01/23/24 20:09 01/23/24 20:04 01/23/24 20:04 01/23/24 20:01 01/23/24 20:01 01/23/24 19:59 01/23/24 19:59 01/23/24 19:53 01/23/24 19:53 01/23/24 19:53 01/23/24 19:53 01/23/24 19:48 01/23/24 19:48 01/23/24 19:43 01/23/24 19:43 01/23/24 19:41 01/23/24 19:41 01/23/24 19:38 01/23/24 19:38 01/23/24 19:36 01/23/24 19:36 01/23/24 19:33 01/23/24 19:33 01/23/24 19:31 01/23/24 19:31 01/23/24 19:28 01/23/24 19:28 01/23/24 19:27 01/23/24 19:27 01/23/24 19:23 01/23/24 19:23 01/23/24 19:22 01/23/24 19:22 01/23/24 19:18 01/23/24 19:18 01/23/24 19:13 01/23/24 19:13 01/23/24 19:13 01/23/24 19:10 01/23/24 19:10 01/23/24 19:08 01/23/24 19:08 01/23/24 19:08 01/23/24 19:08 01/23/24 19:04 01/23/24 19:04 Resident Activity Tracking Resident Involvement: Resident Care Provided Care Provided: OB Delivery
[2024-01-24] MEDS ORDERED: LACTATED RINGER'S 1,000 ML IV SCH (07:15)
[2024-01-24] MEDS: HYDROmorphone INJ 0.5 MG/0.5 ML SYR IV PRN (08:34)
[2024-01-24] MEDS: SIMETHICONE 80 MG CHEW PO SCH (08:39)
[2024-01-24] MEDS: FERROUS SULFATE 325 MG TAB PO SCH (08:39)
[2024-01-24] MEDS: PRENATAL VITAMIN 1 TAB PO SCH (08:39)
[2024-01-24] MEDS: DOCUSATE SODIUM 100 MG CAP PO SCH (08:39)
[2024-01-24] MEDS: NALOXONE HCL 0.08 MG in SYRINGE 1.8 ML IV PRN (12:18)
[2024-01-24 13:56] LABS: Chlamydia trachomatis by NAA Not Detected (NotDetected); GC (Neis gonorrhoeae) by NAA Not Detected (NotDetected)
[2024-01-24] MEDS ORDERED: HYDROmorphone INJ 0.5 MG/0.5 ML SYR IV PRN (15:00)
[2024-01-24] MEDS ORDERED: diphenhydrAMINE Capsule 25 MG CAP PO PRN (15:00)
[2024-01-24] MEDS ORDERED: PROMETHAZINE 12.5 MG/50.5 ML BAG IV PRN (15:00)
[2024-01-24] MEDS ORDERED: diphenhydrAMINE 50 MG/ML VIAL IV PRN (15:00)
[2024-01-24] MEDS ORDERED: ONDANSETRON INJ 2 MG/ML 2 ML VIAL IV PRN (15:00)
[2024-01-24] MEDS: oxyCODONE HCL IR 5 MG TAB (IMMEDIATE RELEASE) PO PRN (18:47)
[2024-01-24] MEDS: bisacodyL 5 MG TABEC PO SCH (20:35)
[2024-01-25 04:20] VITALS: O2SAT 97
[2024-01-25 06:35] VITALS: TEMP 98.6
[2024-01-25 07:43] LABS: Hematocrit (blood only) 27.6 % (37.0-47.0); Hemoglobin 9.5 g/dl (12.0-16.0)
--- NOTE | 2024-01-25 07:43 | Obstetrical Progress Note ---
Date of Service January 25, 2024 Assessment & Plan (1) delivery delivered: Plan 2nd POD; Em LTCS for Meconium with Cat 2 CTG -Possible Post-operative alveoli collapse: Saturation maintained at RA. no SOB, Chest pain. -Suggested regular deep breathing technique; offered incentive spirometry; she wants to try deep breathing first and see. If still same tomorrow, will use Incentive Spirometer. -Doing well overall -Diet: regular -Encouraged ambulation to corridor -Oral meds continue -48 hours complete by evening today; she wants to go home if possible tonight. Admission and Anticipated Discharge Date Admission Date: January 23, 2024 Supervising Physician Co-Signing Physician Notes Patient seen with resident and agree with the above findings and plan. Routine care Subjective 2nd PODfoll Em LTCS for Meconium stained and Cat 2 CTG at term No ANC visit before Mom Doing well; baby transferred to higher center Complains of difficulty in taking deep breath No chest pain , fever, SOB, Palpitation Lochia: Mild Passed gas; Pee normal after urbano removal Normal Ob diet Review of Systems Review of Systems: As per HPI Physical Exam Physical Exam: General: Alert and oriented. No acute distress. CV: Regular rate and rhythm. No murmurs. Respiratory: Mildly decreased air entry bilaterally on lower bases on normal breath. Opens up in deep breath. No rhonchi, wheezes, or crackles. No increased work of breathing. Abdomen: Positive bowel sounds. Soft, nontender, and nondistended. Uterus: Fundus firm and palpable just below umbilicus. Surgical scar clean and healing well. Bandage removed Lower extremities: No LE edema. No deep calf pain. Alcira's negative bilaterally. Results & Data Vital Signs (Past 12 Hours) Vital Signs Temp Pulse Resp BP Pulse Ox O2 Del Method 01/25/24 06:00 37.0 C 01/25/24 04:16 94 H 15 123/84 97 Room Air 01/24/24 20:05 37.3 C 96 H 19 133/84 96 Room Air Resident Activity Tracking Resident Involvement: Resident Care Provided Care Provided: OB Delivery
[2024-01-25 07:52] VITALS: RESP 16
[2024-01-25 10:41] VITALS: BP 123/84; PULSE 88
[2024-01-25] MEDS ORDERED: bisacodyL 10 MG SUPP PR PRN (22:10)
[2024-01-26] MEDS ORDERED: IBUPROFEN 600 MG TAB PO PRN (06:00)
[2024-01-26] MEDS ORDERED: ACETAMINOPHEN 325 MG TAB PO PRN (06:00)
--- NOTE | 2024-01-28 13:18 | Discharge Summary ---
Date of Service January 28, 2024 Admission HPI Per Admitting Provider 23 yo G1 at 37 wks presented for evaluation and was found to be and 37 wks today. She was found to be in labor and admitted. During this time, category 2 tracing was noted due to intermittent variable decels however moderate variability was noted throughout. She received an epidural for pain control. Shortly after epidural, variable decels slowly became more frequent and so resuscitation was performed with appropriate response. See notes for details. Another decel was noted so terbutaline was administered and FSE applied however intrauterine resuscitation efforts did not improve tracing so stat section was called. Discharge Data Consultations 01/23/24 17:40 Consult Anesthesiology Stat Procedures Performed Operation Date: 01/23/24 20:35 Actual Procedures p Section in LD - Phylicia Houston MD Hospital Course (1) 37 weeks gestation of : (2) No care in current : (3) delivery delivered: Plan See operative report for details. She was discharged home on POD2 after uncomplicated post-operative course Coding Level of Care Code None Diagnoses 37 weeks gestation of Z3A.37 No care in current O09.30 delivery delivered O82
== END 2024-01-25 14:47 | disposition home or self-care (01) | DRG 788 ==
LOC: OPB 13:32 → 4S1 13:33 → 4E2 01-24 01:19